=== PATIENT | female | born 1985 | race Two or more races ===

== ENCOUNTER 2021-05-05 06:42 | Day surgery (SDC) | payer OTHER ==
[~2021-05-05 06:42] MED LIST: LABETALOL HCL100 MG PO
== END 2021-05-05 17:00 | disposition home or self-care (01) ==
LOC: CIR.AMB 06:42
PROVIDERS: ATTEND Obstetrics & Gynecology
DX: O02.1 Missed abortion (principal); Z20.822 Contact with and (suspected) exposure to COVID-19